=== PATIENT | male | born 1940 | race Caucasian/White ===

== ENCOUNTER 2017-09-27 07:10 | Day surgery (SDC) | payer OTHER ==
[2017-09-27 08:07] VITALS: BMI 29.7
[2017-09-27] MEDS ORDERED: PROPOFOL 20 ML ONE ×2 (08:10)
[2017-09-27] MEDS ORDERED: SUCCINYLCHOLINE CHLORIDE 200 MG/10 ML VIAL ONE (08:11)
[2017-09-27] MEDS ORDERED: LIDOCAINE HCL/PF 2% SDV 5ML VIAL ONE (09:25)
[2017-09-27] MEDS ORDERED: ceFAZolin SODIUM 1 GM VIAL IVPB ONE (09:30)
[2017-09-27] MEDS ORDERED: ceFAZolin SODIUM 1 GM VIAL ONE (09:33)
[2017-09-27] MEDS ORDERED: DEXAMETHASONE SOD PHOSPHATE 4 MG/1 ML VIAL ONE (09:36)
[2017-09-27] MEDS ORDERED: TAMSULOSIN HCL 0.4 MG CAP.ER.24H (FP) PO ONE (10:30)
[2017-09-27] MEDS ORDERED: ONDANSETRON 4 MG/2 ML VIAL IVPUSH PRN (10:32)
[2017-09-27] MEDS ORDERED: oxyCODONE HCL 5 MG TABLET PO PRN (10:32)
[2017-09-27] MEDS ORDERED: TAMSULOSIN HCL 0.4 MG CAP.ER.24H (FP) ONE (10:59)
--- NOTE | 2017-09-27 11:05 | HP ---
DATE OF ADMISSION: 09/27/2017 HISTORY OF PRESENT ILLNESS: Patient is a 77-year-old male admitted for an elective transurethral resection of bladder tumor. He has had a tumor resection in April of 2017. Post resection, he underwent 6 weeks of intravesical BCG immunotherapy. He does have history of diabetes and benign prostatic hypertrophy. He denies any other surgery. His prostatism consists of nocturia x4, frequency, and terminal dribbling. SOCIAL HISTORY: He is no longer a smoker. He denies drinking. ALLERGIES: He denies any allergies. MEDICATIONS: He has been on Proscar and Flomax for his prostatism. He is taking Januvia for his diabetes. PHYSICAL EXAMINATION: General: Revealed a well-developed, well-oriented elderly gentleman in no apparent distress. Chest: Clear. Heart: Regular rhythm. Abdomen: Soft. There is no CVA tenderness. Genitalia: Atraumatic. Testes were soft and atrophic. There were no hernias or hydroceles. Rectal: Revealed a 3+ benign nontender prostate. DIAGNOSTIC DATA: The patient underwent a preoperative workup including a chest x-ray which was read as within normal limits, an EKG which also revealed sinus rhythm with left axis deviation. The patients PT was 11.1 and INR was 1.1. His random glucose was 98, BUN was 16, creatinine 0.86. Liver enzymes were all within normal limits. 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 Patient will undergo a transurethral resection of bladder tumor. After pathology is obtained, will commence with either followup or definitive treatment therapy depending upon muscle invasion. Will follow. Tiara [id number]
--- NOTE | 2017-09-27 11:06 | OP ---
DATE OF OPERATION: 09/27/2017 PREOPERATIVE DIAGNOSIS: Bladder tumor. POSTOPERATIVE DIAGNOSES: Bladder tumor with urethral stricture disease. OPERATIVE PROCEDURES: Cystourethroscopy. Optical internal urethrotomy. Transurethral resection of a bladder tumor in the left posterior wall, medium size. Under general anesthesia, the patient was prepped and draped in the usual sterile manner. He was placed in the dorsal lithotomy position. Cystoscope was introduced under direct vision. Anterior urethra was within normal limits. Bulbous urethra revealed a tight, diaphragm-type stricture. Therefore, the cystoscope was withdrawn and optical internal urethrotome was inserted. The stricture was cut at the 12 o'clock position. This was cut all the way to the corpus spongiosum. No extravasation or bleeding was noted. The urethrotome was removed and cystoscope was reinserted. The prostate revealed trilobar hypertrophy of the prostate. The bladder was entered. Urine was collected for cytology and C and S. Inspection of the bladder revealed a grade 2 to 3 trabeculation. Ureteral orifices were within normal limits with efflux of clear urine. Inspection of the bladder revealed a papillary, exophilic tumor in the left lateral superior wall of the bladder. It measured 3 cm in diameter. A resectoscope was inserted. The tumor was resected in the usual fashion. Tumor chips were evacuated with an Teach 'n Go evacuator. Again, inspection of the bladder revealed several hyperemic areas. They were also biopsied to rule out any CIS. Cauterization was used for hemostasis. Inspection again revealed efflux of clear urine bilaterally. No other lesions or stones were seen. The bladder was emptied. The scope was removed. The 24-[place], 3-way, 30-cc Bains was inserted. This was connected to a leg bag. The patient tolerated the procedure well. He returned to the recovery room in good condition. Tiara [id number]
[2017-09-27 11:52] VITALS: TEMP 97.7
[2017-09-27 15:24] VITALS: BP 113/57; PULSE 50
--- NOTE | 2017-09-30 16:00 | PATH ---
Cytology Non-Gynecological Report Patient Name: JABARI QUISPE [facility]. Rec. #: [id number] /Age/Gender: 1940 (Age: 77) / M Account: [id number] Location: [facility] SURGICAL Taken: 09/27/2017 Received: 09/27/2017 Reported: 09/30/2017 Physicians: Sulema Daniel M.D. Specimen(s) Received URINE VOIDED Clinical History Bladder tumor Final Diagnosis URINE FOR CYTOLOGY: SATISFACTORY FOR EVALUATION. POSITIVE FOR MALIGNANT CELLS. HIGH GRADE UROTHELIAL CARCINOMA. ATYPICAL UROTHELIAL CELLS WITH HYPERCHROMASIA, INCREASED NUCLEUS TO CYTOPLASMIC RATIO, IRREGULAR NUCLEAR CONTOURS, AND COARSE CHROMATIN, DISPERSED SINGLE CELLS AND MANY PAPILLARY FRAGMENTS. COMMENT: See concurrent surgical biopsy material ([id number]). Findings relayed to Radha from Dr. Daniel's office. Electronically Signed Harmony Dominique M.D. Gross Description Approximately 25 cc of yellow fluid received in sterile cup. Two cytofunnels prepared.
--- NOTE | 2017-09-30 16:21 | PATH ---
Surgical Pathology Report Patient Name: JABARI QUISPE [facility]. Rec. #: [id number] /Age/Gender: 1940 (Age: 77) / M Account: [id number] Location: [facility] SURGICAL Taken: 09/27/2017 Received: 09/27/2017 Reported: 09/30/2017 Physicians: Sulema Daniel M.D. Specimen(s) Received A: BLADDER TUMOR SITE #1 B: BLADDER TUMOR SITE #2 Clinical History Bladder cancer Final Diagnosis A. BLADDER, SITE #1, TRANSURETHRAL RESECTION OF BLADDER TUMOR: HIGH GRADE PAPILLARY UROTHELIAL CARCINOMA, INVASIVE TO LAMINA PROPRIA. MUSCULARIS PROPRIA PRESENT. NO LYMPHOVASCULAR INVASION IDENTIFIED. B. BLADDER, SITE #2, TRANSURETHRAL RESECTION OF BLADDER TUMOR: HIGH GRADE PAPILLARY UROTHELIAL CARCINOMA, INVASIVE TO LAMINA PROPRIA. MUSCULARIS PROPRIA PRESENT. NO LYMPHOVASCULAR INVASION IDENTIFIED. TREATMENT EFFECT IDENTIFIED. Electronically Signed Harmony Dominique M.D. Gross Description A. Received in formalin labeled "bladder tumor site #1," is a 0.7 x 0.6 x 0.3 cm machado, polypoid portion of soft tissue. The specimen is submitted in toto in one cassette. B. Received in formalin labeled "bladder tumor site #2," are 2 machado-pink, irregular soft tissue fragments measuring 0.4 and 0.8 cm in greatest dimension. The specimens are submitted in toto in one cassette. /09/27/201709/27/2017
== END 2017-09-27 13:10 | disposition home or self-care (01) ==
LOC: JASU-SURG 07:10
PROVIDERS: ATTEND Urology
PROC: 0T5B8ZZ Destruction of Bladder, Via Natural or Artificial Opening Endoscopic (ICD-10-PCS; principal; 2017-09-27 09:00)
PROC: 0TND8ZZ Release Urethra, Via Natural or Artificial Opening Endoscopic (ICD-10-PCS; 2017-09-27 09:00)
DX: C67.8 Malignant neoplasm of overlapping sites of bladder (principal); N35.8 Other urethral stricture
CPT/HCPCS: 87086; 88108; 88305-TC; 94760